=== PATIENT | female | born 1965 | race Caucasian/White ===

== ENCOUNTER 2021-07-29 10:50 | Outpatient (REF) | payer OTHER, SELFPAY ==
--- NOTE | 2021-07-29 14:34 | MHC.AU.HAS ---
Hearing Aid Evaluation Date of Visit: 07/29/21 Historical Information: Description of Hearing: Normal sloping to moderate SNHL and rising to normal Summary: Patient was first diagnosed with hearing loss in 2014. She feels it developed in adulthood and has been slowly progressing for years. It has started to interfere with everday life and work. Hearing aid options were discussed. Hearing Aid Prescription: Based on the individual?s shared listening needs, communication environments, dexterity, desire for connectivity, and personal preferences, the following prescription for amplification has been made: Right ear: Quality Process Auditor: Phonak Model: [place] P70-R Battery Size: Rechargeable Color: Black Director Of Institutional Giving: 1M Left ear: Quality Process Auditor: Phonak Model: [place]udeo P70-R Battery Size: Rechargeable Color: Black Director Of Institutional Giving: 1M Action Taken/Action Needed: Patient will be contacted when materials have arrived. Primary Diagnosis: H90.3 Bilateral Sensorineural Hearing Loss Signature: Provider: Gray Munroe, TOM-A
--- NOTE | 2021-07-29 14:37 | MHC.AU.MED ---
Medical Clearance for Hearing Instrumentation Date: 07/29/21 Patient Name: Clarissa Haines Date of : 1965 Referring Provider: Jayden Wiggins MD We have seen your patient on 07/29/21 and have determined that they are a candidate for amplification (See accompanying report). Specifically, they would benefit from: Hearing aid use in both ears There is a statute that addresses Medical Evaluation Requirements prior to fitting a patient with a hearing aid. According to [place] statute [facility] CMR:6.03(1), (a) General. Except as provided in 265 CMR 6.03(1)(b), a hearing healthcare practitioner shall not sell a hearing aid unless the prospective user has presented to the hearing healthcare practitioner a written statement signed by a licensed physician that states that the patient's hearing loss has been medically evaluated and the patient may be considered a candidate for a hearing aid. The medical evaluation must have taken place within the preceding six months. Please note: Due to the [place] Statute referenced above, we cannot accept a signature other than that of a licensed physician. PIPELINE SUPERINTENDENT and PA signatures cannot be accepted. I am in agreement with the above recommendation. There is no medical contraindication for hearing instrumentation. Physician Signature Date Physician Name (Printed)
--- NOTE | 2021-07-29 14:53 | MHC.AU.AEV ---
Adult Audiological Evaluation Date of Visit: 07/29/21 Reason for Appointment: Patient was initially diagnosed with hearing loss in 2015. She believes it developed in adulthood and has been slowly progressing. It has started to interfere with everyday life and work. Has hearing been tested previously?: Yes Previous Hearing Test Results: [facility] on 12/23/2020- Normal sloping to mild/moderate sensorineural hearing loss and rising back to normal, cookie bite configuration Hearing Handicap Inventory Does a hearing problem cause you to feel embarrassed when meeting new people?: Sometimes Does a hearing problem cause you to feel frustrated when talking to members of your family?: Sometimes Do you have difficulty when someone speaks in a whisper?: Yes Do you feel handicapped by a hearing problem?: No Does a hearing problem cause you difficulty when visiting friends, relatives, or neighbors?: Yes Does a hearing problem cause you to attend holiness service services less often than you would like?: No Does a hearing problem cause you to have arguments with family members?: No Does a hearing problem cause you difficulty when listening to TV or radio?: Yes Do you feel that any difficult with your hearing limits or hampers your personal or social life?: No Does a hearing problem cause you difficulty when in a restaurants with relatives or friends?: Yes HHIE SCORE: 20 Based on HHIE score, patient has: Mild to moderate perceived hearing handicap Ear History: Ear Deformity: None Reported Recent Ear Drainage: None Reported Recent Ear Pain: None Reported Family History of Hearing Loss?: Yes: Mother Recent Ear Infections: None Reported Ear Infections in Childhood: None Reported History of Ear Wax Buildup: None Reported Previous Ear Surgery: None Reported Bothersome Tinnitus/Ringing/Noises in Ears: Both Ears Ear used on the phone: Left Ear Blocked/Full Sensation in Ear(s): None Reported History of occupational noise exposure?: No History: No Medical History: Medical History: Diabetes, High Blood Pressure, Stroke, Tobacco Use Medication List: Atorvastatin, Fish Oil, Aspirin, Jardiance, Vitamin D, Lisinopril, Metformin, Hydrochlorothiazide Otoscopy: Right Ear: Unremarkable Left Ear: Unremarkable Hearing Evaluation: Transducer(s) Used: Insert Earphones Method: Conventional Audiometry Stimuli Used: Pure Tones Right Ear: Description of Hearing: Normal, sloping to moderate sensorineural hearing loss, and rising back to normal, cookie bite configuration Left Ear: Description of Hearing: Normal, sloping to moderate sensorineural hearing loss, and rising back to normal, cookie bite configuration Recommendations: Audiological re-evaluation in one year. Trial with amplification is recommended. See Hearing Aid Evaluation report for more information. Diagnosis: Primary Diagnosis: H90.3 Bilateral Sensorineural Hearing Loss Signature: Provider: Gray Munroe, TOM-A
== END 2021-07-29 10:51 | disposition home or self-care (01) ==
LOC: HO.HAP 10:50
PROVIDERS: Visit Provider Internal Medicine
DX: Z46.1 Encounter for fitting and adjustment of hearing aid (principal); H90.3 Sensorineural hearing loss, bilateral
CPT/HCPCS: 92553; 92591

== ENCOUNTER 2021-09-02 08:29 | Outpatient (REF) | payer OTHER, SELFPAY | END 2021-09-02 08:30 | disposition home or self-care (01) | LOC: HO.HAP 08:29 | PROVIDERS: PCP Nurse Practitioner Family; Visit Provider Internal Medicine | DX: Z46.1 Encounter for fitting and adjustment of hearing aid (principal); H90.3 Sensorineural hearing loss, bilateral | CPT/HCPCS: V5011; V5020; V5160; V5261 ==

== ENCOUNTER 2021-09-23 08:54 | Outpatient (REF) | payer OTHER, SELFPAY | END 2021-09-23 08:55 | disposition home or self-care (01) | LOC: HO.HAP 08:54 | PROVIDERS: Visit Provider Nurse Practitioner Family | DX: Z13.89 Encounter for screening for other disorder (principal) ==

== ENCOUNTER 2022-09-08 14:46 | Outpatient (REF) | payer SELFPAY | END 2022-09-08 14:47 | disposition home or self-care (01) | LOC: HO.HAP 14:46 | PROVIDERS: Visit Provider Nurse Practitioner Family | DX: Z13.89 Encounter for screening for other disorder (principal) ==

== ENCOUNTER 2022-09-12 15:39 | Outpatient (REF) | payer SELFPAY | END 2022-09-12 15:40 | disposition home or self-care (01) | LOC: HO.HAP 15:39 | PROVIDERS: Visit Provider Nurse Practitioner Family | DX: Z13.89 Encounter for screening for other disorder (principal) ==